=== PATIENT | female | born 1945 | race Two or more races ===

== ENCOUNTER 2023-05-10 05:30 | Day surgery (SDC) | payer OTHER ==
[2023-04-22 11:02] LABS: HEMOGLOBIN 11.8 g/dL (12.0-15.00); MEAN CELL VOLUME 79.2 fL (80.00-100.00); MEAN CORPUSCULAR HEMOGLOBIN 26.8 pg (27.00-32.0); MEAN CORPUSCULAR HGB CONC 33.8 g/dl (32.0-36.0); PLATELET COUNT 300 K/uL (150-450); RED BLOOD COUNT 4.42 M/uL (4.00-6.00); RED CELL DISTRIBUTION WIDTH 13.5 % (11.5-14.5)
[2023-04-22 11:38] LABS: INR 0.99; PARTIAL THROMBOPLASTIN TIME 24.6 SECONDS (22.0-34.0); PROTHROMBIN TIME 10.4 SECONDS (9.0-11.5)
[2023-04-22 11:42] LABS: ALBUMIN 3.4 gm/dL (3.4-5.0); BILIRUBIN TOTAL 0.32 mg/dL (0.3-1.2); CALCIUM 9.7 mg/dL (8.5-10.1); CREATININE SERUM 0.97 mg/dL (0.55-1.02); GFR 55.68; GLOBULINA 3.5 G/DL (2.4-3.5); POTASSIUM 3.87 mEq/L (3.5-5.1); TOTAL PROTEIN 6.9 gm/dL (6.4-8.2)
[2023-04-22 13:26] LABS: URINE APPEARANCE Clear; URINE BILIRRUBIN Negative (NEGATIVE); URINE BLOOD Negative; URINE COLOR Yellow; URINE GLUCOSE Negative (NEGATIVE); URINE LEUKOCYTE Large; URINE NITRATE Negative; URINE PROTEIN Negative (NEGATIVE)
[2023-04-22 13:30] LABS: URINE BACTERIA 231.8 uL (0.0-1933); URINE EPITHELIAL CELLS 15.7 uL (0.0-38.8); URINE RBC 25.5 uL (0.0-20.8); URINE WBC 395.6 uL (0.0-23.2)
[~2023-05-10 05:30] MED LIST: FENOFIBRATE48 MG PO; FLUOXETINE HCL60 MG PO; IRON236 MG PO; IVERMECTIN3 MG PO; METFORMIN HCL500 M3 PO; NIX59 M1 TOP; PROTONIX40 MG PO; TRAZODONE HCL100 MG PO; XARELTO20 MG PO; ZESTRIL2.5 MG PO
[2023-05-10] MEDS ORDERED: IBU600 MG PO (08:58)
[2023-05-10] MEDS ORDERED: AMOX-CLAV 875-1 EACH PO (08:59)
== END 2023-05-10 15:50 | disposition home or self-care (01) ==
LOC: CIR.AMB 05:30
PROVIDERS: ATTEND Obstetrics & Gynecology Gynecology
DX: N84.0 Polyp of corpus uteri (principal); N71.9 Inflammatory disease of uterus, unspecified; D25.9 Leiomyoma of uterus, unspecified; Z20.822 Contact with and (suspected) exposure to COVID-19

== ENCOUNTER 2024-10-23 06:02 | Day surgery (SDC) | payer OTHER ==
[2024-10-18 14:46] VITALS: BP 116/71
[~2024-10-23] VITALS: Ht 162.6 cm; Wt 63.5 kg
[~2024-10-23 06:02] MED LIST changes: +AMOX-CLAV 875-1 EACH PO; +IBU600 MG PO
[2024-10-23] MEDS ORDERED: POVIDONE-IODINE 118 ML BOTT TOP ONE (10:04)
[2024-10-23] MEDS ORDERED: IBU600 MG PO (11:02)
== END 2024-10-23 16:50 | disposition home or self-care (01) ==
LOC: CIR.AMB 06:02
PROVIDERS: ATTEND Obstetrics & Gynecology Gynecology
DX: N84.0 Polyp of corpus uteri (principal); N95.0 Postmenopausal bleeding

== ENCOUNTER 2025-02-23 09:24 | Outpatient (CLI) | payer OTHER | END 2025-02-23 09:40 | disposition home or self-care (01) | LOC: TOM 09:24 | PROVIDERS: ATTEND Obstetrics & Gynecology Gynecology | DX: K57.30 Diverticulosis of large intestine without perforation or abscess without bleeding (principal) ==